=== PATIENT | female | born 1960 | race Caucasian/White ===

== ENCOUNTER 2024-12-03 14:53 | Emergency (ER) | payer MEDICARE, OTHER ==
[~2024-12-03] VITALS: Ht 152.4 cm; Wt 72.6 kg
[2024-12-03] MEDS ORDERED: Lidocaine 4% 1 Patch TOP ONE ×2 (17:00)
[2024-12-03] MEDS ORDERED: Ketorolac Tromethamine 15mg Vial IM ONE (17:00)
== END 2024-12-03 17:33 | disposition home or self-care (01) ==
LOC: ER 14:53
DX: M54.2 Cervicalgia (principal)
CPT/HCPCS: 72070; 72125; 96372; 99284-25; A9270; J1885

== ENCOUNTER 2024-12-05 15:50 | Inpatient (IN) | payer MEDICARE, MEDICAID ==
[~2024-12-05] VITALS: Ht 152.4 cm; Wt 78.7 kg
[2024-12-05 16:22] LABS: BASOPHILS ABSOLUTE AUTO 0.05 K/mm3 (0.00-0.23); BASOPHILS PERCENT AUTO 1 % (0-2); EOSINOPHILS ABSOLUTE AUTO 0.45 K/mm3 (0.00-0.68); EOSINOPHILS PERCENT AUTO 7 % (0-6); Hematocrit 35.2 % (33.0-51.0); IMMATURE GRAN ABSOLUTE AUTO 0.01 K/mm3 (0.00-0.10); IMMATURE GRAN PERCENT AUTO 0 % (0-1); LYMPHOCYTES ABSOLUTE AUTO 1.07 K/mm3 (0.84-5.20); LYMPHOCYTES PERCENT AUTO 16 % (21-46); MONOCYTES ABSOLUTE AUTO 0.76 K/mm3 (0.16-1.47); MONOCYTES PERCENT AUTO 11 % (4-13); Mean Corpuscular HGB 27.9 pg (26.0-34.0); Mean Corpuscular HGB Conc 31.3 g/dL (31.5-36.5); Mean Corpuscular Volume 89 fL (80-100); Mean Platelet Volume 9.6 fL (9.1-12.4); NEUTROPHILS ABSOLUTE AUTO 4.54 K/mm3 (1.96-9.15); NEUTROPHILS PERCENT AUTO 66 % (41-73); Platelet Count 308 K/mm3 (150-400); RDW Coefficient Variation 16.9 % (11.7-14.2); RDW Standard Deviation 55.2 fL (35.1-46.3); Red Blood Cell Count 3.94 M/mm3 (3.80-5.20); White Blood Cell Count 6.88 K/mm3 (4.00-11.30)
[2024-12-05 16:34] LABS: Albumin, Blood 3.1 g/dL (3.4-5.0); Albumin/Globulin Ratio 0.7 (0.8-1.8); Bilirubin, Total 0.9 mg/dL (0.1-1.0); Bun/Creatinine Ratio 19.3 (12.0-20.0); Calcium, Blood 8.8 mg/dL (8.5-10.1); Creatinine, Blood 0.62 mg/dL (0.40-1.00); Globulin, Blood 4.4 g/dL (2.2-4.0); Total Protein, Blood 7.5 g/dL (6.4-8.2)
[2024-12-05] MEDS ORDERED: Morphine Sulfate 4 MG/1 ML Injection IV ONE (18:40)
[2024-12-05] MEDS ORDERED: Ondansetron HCl 2 MG / ML 2ML Vial IV ONE (18:40)
[2024-12-05 19:03] LABS: International Normalized Ratio 1.13
[2024-12-05] MEDS ORDERED: Nitroglycerin 0.4 MG SUBL SL PRN (20:20)
[2024-12-05] MEDS ORDERED: Ondansetron HCl 2 MG / ML 2ML Vial IV PRN (20:50)
[2024-12-05] MEDS ORDERED: FLU VACC TS2024-25(6MOS UP)/PF 45 MCG/0.5 ML SYRINGE IM ONE (20:50)
[2024-12-05] MEDS ORDERED: Morphine Sulfate 4 MG/1 ML Injection IV PRN (20:50)
[2024-12-05] MEDS ORDERED: Ondansetron HCl 2 MG / ML 2ML Vial ONE (20:58)
[2024-12-05] MEDS ORDERED: Morphine Sulfate 4 MG/1 ML Injection ONE (20:58)
[2024-12-05] MEDS ORDERED: Dose Adjust by Pharmacy XX STA (21:40)
[2024-12-05] MEDS ORDERED: Heparin Sodium 5000 Units/ML 1ML MDV IV ONE (21:40)
[2024-12-05] MEDS ORDERED: Heparin Sodium,Porcine/0.5 NS 500 ML IV SCH (21:40)
[2024-12-06] MEDS ORDERED: Insulin Human Lispro 100 Units/ML 3ML Syringe SC SCH
[2024-12-06 04:31] LABS: Hematocrit 31.5 % (33.0-51.0); Hemoglobin 9.8 g/dL (11.5-16.0); Mean Corpuscular HGB Conc 31.1 g/dL (31.5-36.5); Mean Corpuscular Volume 90 fL (80-100); Mean Platelet Volume 10.1 fL (9.1-12.4); Platelet Count 324 K/mm3 (150-400); RDW Coefficient Variation 17.1 % (11.7-14.2); RDW Standard Deviation 55.8 fL (35.1-46.3); White Blood Cell Count 6.98 K/mm3 (4.00-11.30)
[2024-12-06 04:45] LABS: Anti-Xa UFH, PHA Monitoring 0.22 IU/mL; International Normalized Ratio 1.19; Prothrombin Time Results 12.6 Sec (9.7-11.5)
[2024-12-06 04:52] LABS: Albumin, Blood 3.1 g/dL (3.4-5.0); Albumin/Globulin Ratio 0.8 (0.8-1.8); Bilirubin, Total 1.1 mg/dL (0.1-1.0); Bun/Creatinine Ratio 17.1 (12.0-20.0); Calcium, Blood 8.7 mg/dL (8.5-10.1); Creatinine, Blood 0.7 mg/dL (0.40-1.00); Globulin, Blood 3.9 g/dL (2.2-4.0); Magnesium, Blood 1.8 mg/dL (1.6-2.4); Potassium, Blood 3.8 mmol/L (3.5-5.5)
[2024-12-06] MEDS ORDERED: Dose Adjust by Pharmacy XX STA ×3 (05:39→20:46)
[2024-12-06] MEDS ORDERED: Heparin Sodium 5000 Units/ML 1ML MDV IV ONE ×3 (05:40→20:50)
[2024-12-06] MEDS ORDERED: Aspirin 81 MG Chew PO SCH (09:00)
[2024-12-06] MEDS ORDERED: Metoprolol Succinate 25 MG TABCR PO SCH (09:00)
[2024-12-06] MEDS ORDERED: Atorvastatin 40 MG Tab PO SCH (09:00)
[2024-12-06] MEDS ORDERED: Lisinopril 5 MG Tab PO SCH (09:00)
[2024-12-06] MEDS ORDERED: HYDROcodone 5-APAP 325 TAB PO PRN (09:45)
[2024-12-06] MEDS ORDERED: ASPI81CH PO (12:38)
[2024-12-06] MEDS ORDERED: ATOR40TA PO (12:38)
[2024-12-06] MEDS ORDERED: METO25 PO (12:38)
[2024-12-06] MEDS ORDERED: FURO40 PO (12:39)
[2024-12-06] MEDS ORDERED: METF500 PO (12:39)
[2024-12-06] MEDS ORDERED: K-TAB ER20 ME1 PO (12:39)
[2024-12-06] MEDS ORDERED: WARF2.5 PO (12:40)
[2024-12-06] MEDS ORDERED: SERT50 PO (12:40)
[2024-12-06] MEDS ORDERED: LISI20 PO (12:41)
[2024-12-06] MEDS ORDERED: HYDROCODONE-AC1 EA19 PO (12:43)
[2024-12-06 12:44] VITALS: BP 107/66
--- NOTE | 2024-12-06 13:28 | NUR ---
ADMISSION: PT ARRIVED TO PCU VIA GURNEY AT APPROX 1230. PT ABLE TO TRANSFER WITH ONE PERSON ASSIST. ALERT AND ORIENTED X4, ABLE TO FOLLOW COMMANDS AND MAKE NEEDS KNOWN. STRENGTH EQUAL BILATERALLY. PEERLA. BP STABLE. HR PACED 60'S. AFEBRILE. SPO2 >98% ON 2L NC. ABD DISTENDED, BOWEL SOUNDS +. NON TENDER. PLAN FOR PARACENTESIS 12/07/24. PULSES STRONG AND EQUAL THROUGHOUT. PT WITH 8/10 CHEST PAIN, MEDICATED PER EMAR. PT ORIENTED TO ROOM AND CALL LIGHT SYSTEM.
--- NOTE | 2024-12-06 17:00 | NUR ---
SHIFT SUMMARY: PT WITH NO ACUTE CHANGES SINCE ADMISSION. MEDICATED X1 FOR PAIN. VSS. PLAN FOR PARACENTESIS AT 0900 12/07/24. HEPARIN TO BE TURNED OFF AT 0600- SEE NURSE NOTIFY. BED IN LOW, CALL LIGHT IN REACH, WILL REPORT TO ONCOMING RN.
[2024-12-06 17:08] VITALS: BP 103/59
[2024-12-06 19:50] VITALS: BP 111/66
[2024-12-06 23:31] VITALS: BP 116/74
[2024-12-07 03:25] LABS: Hematocrit 30.1 % (33.0-51.0); Hemoglobin 9.3 g/dL (11.5-16.0)
[2024-12-07 03:42] LABS: Bun/Creatinine Ratio 26.2 (12.0-20.0); Calcium, Blood 8.6 mg/dL (8.5-10.1); Creatinine, Blood 0.69 mg/dL (0.40-1.00); Magnesium, Blood 1.6 mg/dL (1.6-2.4); Potassium, Blood 4.4 mmol/L (3.5-5.5)
[2024-12-07 04:00] VITALS: BP 107/64
[2024-12-07] MEDS ORDERED: Clarify Drug Order XX ONE (04:20)
--- NOTE | 2024-12-07 05:52 | NUR ---
SHIFT SUMMARY ASSUMED CARE OF PT AT 1900. PT A&O4, COOPERATIVE IN CARE AND ABLE TO EXPRESS NEEDS. HEP GTTS CURRENTLY ON STANDBY D/T A PARACENTESIS LATER THIS AM; AT THERAPEUTIC RANGE HEP GTT WAS RUNNING AT 21U/KG/HR OR 25.2mL/HR. PT REFUSED CPAP OVERNIGHT. VSS AND REMAINED ON 1L NC. PT C/O ABDOMEN PAIN OVERNIGHT BUT DENIED CP/PRESSURE AND SOB, EVEN WHILE UP TO RR. BED IN LOWEST POSITION AND CALL LIGHT WITHIN REACH.
[2024-12-07] MEDS ORDERED: Omeprazole 20 MG CapCR PO SCH (06:00)
[2024-12-07 07:35] VITALS: BP 109/71
[2024-12-07] MEDS ORDERED: Spironolactone 25 MG Tab PO SCH ×2 (09:00)
[2024-12-07] MEDS ORDERED: Spironolactone 50 MG Tab PO SCH (09:00)
[2024-12-07] MEDS ORDERED: Torsemide 20 MG TAB PO SCH (09:00)
[2024-12-07 10:21] LABS: Automated BF RBC Count 0.003 M/mm3 (0-0); Automated BF WBC Count 0.366 K/mm3 (0-999)
[2024-12-07 10:26] VITALS: BP 97/85
[2024-12-07 10:32] LABS: Body Fluid WBC Count 366 /mm3 (0-999); RBC Count, Body Fluid 3000 /mm3 (0-0)
--- NOTE | 2024-12-07 10:33 | NUR ---
MORNING NOTE THIS RN ASSUMED CARE AT APPROX 0715. PATIENT ALERT AND ORIENTED X4. BEDBATH COMPLETED THIS MORNING. VSS. TELEMETRY SHOWING V PACED 60. SBP 90s-100s. MAP >65. DENIES CHEST PAIN, PRESSURE. ON 1L VIA NC, SATs >90%. RR EVEN, UNLABORED AT REST. ABD FIRM, DISTENDED, BOWEL TONES HYPOACTIVE - PARACENTESIS COMPLETED THIS MORNING. BANDAID TO RLQ - C/D/I. 5L OFF. MANAGING ABD PAIN PER EMAR. HEPARIN GTT RESTARTED PER RADIOLOGY AT ORDERED RATE - PHARMACY AWARE. SBA WITH MOBILITY. CALL LIGHT IN REACH.
[2024-12-07 10:57] LABS: Albumin, Body Fluid 1.8 g/dL; Glucose, Body Fluid 170 mg/dL
--- NOTE | 2024-12-07 10:57 | NUR ---
MD KAPOOR CONTACTED WITH UPDATE POST PARACENTESIS. [facility] [employer] [place] SPOKE WITH MD BACH - PATIENT TO TRANSFER TO COUMADIN THERAPY. MD KAPOOR TO PLACE ORDERS FOR COUMADIN. RECEIVED ORDER FOR ACHS CBG CHECKS WITH LOW SLIDING SCALE AND FOR STATUS CHANGE TO MEDICAL WITH TELEMETRY - THOSE ORDERS IN PLACE.
[2024-12-07 10:58] LABS: Lactate Dehydrogenase, Body Fl 109 U/L; Protein, Body Fluid 3.9 g/dL
[2024-12-07] MEDS ORDERED: Albumin (Human) 25gm/100ml 100 ML IV ONE (11:05)
[2024-12-07 11:10] VITALS: BP 109/61
[2024-12-07 11:22] LABS: Appearance, Body Fluid Hazy (Clear); Color, Body Fluid Yellow (None-Yellow); Total Cell Count, Body Fluid 100
[2024-12-07] MEDS ORDERED: Insulin Human Lispro 100 Units/ML 3ML Syringe SC SCH (11:30)
[2024-12-07] MEDS ORDERED: Albumin Human 50 ML IV ONE (12:30)
[2024-12-07 15:07] VITALS: BP 115/76
--- NOTE | 2024-12-07 17:40 | NUR ---
SHIFT SUMMARY NO ACUTE CHANGES SINCE MORNING NOTE. VSS. TELEMETRY SHOWING V PACED 60s-80s. SBP 90s-110s. MAP >65. DENIES CHEST PAIN, PRESSURE. HEPARIN GTT INFUSING PER EMAR. PO WARFARIN ADMINISTERED THIS EVENING TO BEGIN BRIDGING PROCESS. REMAINS ON 1-2L VIA NC, SATs >90%. RR EVEN, UNLABORED AT REST. PARACENTESIS SITE C/D/I. MANAGING ABD PAIN PER EMAR. TOLERATING PO INTAKE. UP TO RESTROOM WITH SBA. VOIDING. CALL LIGHT IN REACH. WILL CONTINUE TO MONITOR AND REPORT TO ONCOMING RN.
[2024-12-07] MEDS ORDERED: Warfarin Sodium 5 MG Tab PO SCH (18:00)
[2024-12-07] MEDS ORDERED: Heparin Sodium 5000 Units/ML 1ML MDV IV ONE (18:00)
[2024-12-07 20:20] VITALS: BP 108/87
[2024-12-08] MEDS ORDERED: Clarify Drug Order XX ONE ×2 (01:05→06:15)
[2024-12-08 03:57] VITALS: BP 96/61
[2024-12-08 05:58] LABS: BASOPHILS ABSOLUTE AUTO 0.04 K/mm3 (0.00-0.23); BASOPHILS PERCENT AUTO 1 % (0-2); EOSINOPHILS ABSOLUTE AUTO 0.38 K/mm3 (0.00-0.68); EOSINOPHILS PERCENT AUTO 6 % (0-6); Hematocrit 31.7 % (33.0-51.0); Hemoglobin 9.8 g/dL (11.5-16.0); IMMATURE GRAN ABSOLUTE AUTO 0.02 K/mm3 (0.00-0.10); IMMATURE GRAN PERCENT AUTO 0 % (0-1); LYMPHOCYTES ABSOLUTE AUTO 1.22 K/mm3 (0.84-5.20); LYMPHOCYTES PERCENT AUTO 20 % (21-46); MONOCYTES ABSOLUTE AUTO 0.83 K/mm3 (0.16-1.47); MONOCYTES PERCENT AUTO 13 % (4-13); Mean Corpuscular HGB 28.1 pg (26.0-34.0); Mean Corpuscular HGB Conc 30.9 g/dL (31.5-36.5); Mean Corpuscular Volume 91 fL (80-100); Mean Platelet Volume 9.4 fL (9.1-12.4); NEUTROPHILS ABSOLUTE AUTO 3.75 K/mm3 (1.96-9.15); NEUTROPHILS PERCENT AUTO 60 % (41-73); Platelet Count 288 K/mm3 (150-400); RDW Coefficient Variation 16.6 % (11.7-14.2); RDW Standard Deviation 55.2 fL (35.1-46.3); Red Blood Cell Count 3.49 M/mm3 (3.80-5.20); White Blood Cell Count 6.24 K/mm3 (4.00-11.30)
[2024-12-08 06:06] LABS: International Normalized Ratio 1.18; Prothrombin Time Results 12.5 Sec (9.7-11.5)
[2024-12-08 06:13] LABS: Bun/Creatinine Ratio 22.4 (12.0-20.0); Calcium, Blood 8.6 mg/dL (8.5-10.1); Creatinine, Blood 0.67 mg/dL (0.40-1.00); Magnesium, Blood 1.9 mg/dL (1.6-2.4); Phosphorus, Blood 3.1 mg/dL (2.5-4.9); Potassium, Blood 4.5 mmol/L (3.5-5.5)
--- NOTE | 2024-12-08 06:16 | NUR ---
SHIFT SUMMARY ASSUMED CARE OF PT AT APPROX 1900. PT A&O4, COOPERATIVE IN CARE AND ABLE TO EXPRESS NEEDS. PT DENIES SOB AND CP/PRESSURE. ONLY COMPLAINTS PT HAD WHERE OF THE ABDOMEN. PARACENTESIS SITE C/D/I. VSS AND PT REMAINED ON 2LNC. PT REMANINED ON HEPARIN GTTS AT 23U/KG/HR OR 27.6ML/HR. LABS HAVE BEEN THERAPUTIC PER RX. BED IN LOWEST POSITION AND CALL LIGHT IS IN REACH.
[2024-12-08 08:15] VITALS: BP 115/68
[2024-12-08] MEDS ORDERED: Torsemide 20 MG TAB PO SCH ×2 (09:00)
[2024-12-08 11:25] VITALS: BP 101/64
[2024-12-08] MEDS ORDERED: Lidocaine 4% 1 Patch TOP SCH (11:50)
[2024-12-08 16:16] VITALS: BP 96/62
--- NOTE | 2024-12-08 17:08 | NUR ---
Patient is lying in her bed and alert. Chaplain Lora and I visit her. She tells us about a traumatic event and the issues that led to her admission to the hospital. She tells us about her fears which are mostly centered around housing insecurity and people that she can trust. She is tearful when we arrive but seems to perk up quite a bit as we talk. She shares about her belief in God but not a connection to any particular organized anabaptist. We explore her hopes and some of the concerns she has for feeling safe. We provided therapeutic listening, reinforce helpful attitudes, normalize her responses and provided prayer. She voices that it was meaningful and invites us to return when possible.
--- NOTE | 2024-12-08 17:12 | NUR ---
SHIFT SUMMARY PT A&Oc4, CALLS AND COMMUNICATES NEEDS APPROPRIATELY. BP STABLE, PACED 60'S, DENIES CP/PRESSURE. SpO2> 92% RA-2L VIA NC, DENIES SOB. IND IN ROOM. REPORTS PAIN SECONDARY TO PARA, MANAGED PER EMAR. HEPARIN gtt INFUSING PER EMAR MANAGED BY PHARMACY. NO OTHER EVENTS, WILL REPORT TO ONCOMING RN.
[2024-12-08] MEDS ORDERED: Warfarin Sodium 5 MG Tab PO SCH (18:00)
[2024-12-08 20:34] VITALS: BP 114/64
[2024-12-09 03:26] VITALS: BP 118/56
[2024-12-09 03:38] LABS: BASOPHILS ABSOLUTE AUTO 0.04 K/mm3 (0.00-0.23); BASOPHILS PERCENT AUTO 1 % (0-2); EOSINOPHILS ABSOLUTE AUTO 0.34 K/mm3 (0.00-0.68); EOSINOPHILS PERCENT AUTO 6 % (0-6); Hematocrit 32.2 % (33.0-51.0); IMMATURE GRAN ABSOLUTE AUTO 0.02 K/mm3 (0.00-0.10); IMMATURE GRAN PERCENT AUTO 0 % (0-1); LYMPHOCYTES ABSOLUTE AUTO 1.17 K/mm3 (0.84-5.20); LYMPHOCYTES PERCENT AUTO 21 % (21-46); MONOCYTES ABSOLUTE AUTO 0.71 K/mm3 (0.16-1.47); MONOCYTES PERCENT AUTO 13 % (4-13); Mean Corpuscular HGB 27.9 pg (26.0-34.0); Mean Corpuscular HGB Conc 31.1 g/dL (31.5-36.5); Mean Corpuscular Volume 90 fL (80-100); Mean Platelet Volume 9.4 fL (9.1-12.4); NEUTROPHILS ABSOLUTE AUTO 3.35 K/mm3 (1.96-9.15); NEUTROPHILS PERCENT AUTO 60 % (41-73); Platelet Count 293 K/mm3 (150-400); RDW Coefficient Variation 16.7 % (11.7-14.2); RDW Standard Deviation 55.1 fL (35.1-46.3); Red Blood Cell Count 3.59 M/mm3 (3.80-5.20); White Blood Cell Count 5.63 K/mm3 (4.00-11.30)
[2024-12-09 03:56] LABS: Bun/Creatinine Ratio 26.3 (12.0-20.0); Calcium, Blood 8.6 mg/dL (8.5-10.1); Creatinine, Blood 0.84 mg/dL (0.40-1.00); Potassium, Blood 4.3 mmol/L (3.5-5.5)
[2024-12-09 04:01] LABS: Anti-Xa UFH, PHA Monitoring 0.33 IU/mL; International Normalized Ratio 1.21; Prothrombin Time Results 12.8 Sec (9.7-11.5)
--- NOTE | 2024-12-09 04:58 | NUR ---
shift summary. shift has been unremarkable. pt aox4, pleasant, cooperative with care, able to make needs known. pt has been able to rest comfortably throughout most of shift. pain has been adequately managed via emar. vitals have remained stable. has maintained adequate saturation on RA-2 l o2 throughout shift. running paced on tele. independent transfer, calls appropriately for assistance. heparin infusing throughout shift. bed locked in lowest position. call light left within reach. continuing to monitor.
[2024-12-09] MEDS ORDERED: Clarify Drug Order XX ONE (05:25)
[2024-12-09 08:36] VITALS: BP 106/57
[2024-12-09] MEDS ORDERED: OxyCODONE HCL 5 MG TAB PO PRN (10:05)
[2024-12-09] MEDS ORDERED: ALPRAZolam 0.25 MG Tab PO ONE (11:00)
[2024-12-09] MEDS ORDERED: ALPRAZolam 0.25 MG Tab PO PRN (16:00)
[2024-12-09 16:37] VITALS: BP 117/61
[2024-12-09] MEDS ORDERED: Warfarin Sodium 5 MG Tab PO SCH (18:00)
--- NOTE | 2024-12-09 18:10 | NUR ---
SHIFT SUMMARY PT ALERT AND ORIENTED X4, CALM, COOPERATIVE TO CARE. HR IN THE 60'S, PACED RHYTHM, SHE DENIES ANY CHEST PAIN AT THIS TIME, DENIES NUMB/TINGLING, SBP STABLE. O2 >92% ON 2L VIA NC, 2L AT BASELINE. PT AMBULATORY TO BATHROOM. PT WITH 8/10 PAIN OF THE NECK AND TUMMY, MEDICATING PER EMAR. PT ON HEP GTT PER ORDER. TRANSITIONING TO ORAL ANTICOAGULATION. PT DENIES ANY QUESTIONS OR CONCERNS AT THIS TIME. WILL MONITOR AND REPOT TO HOT PLATE [place] PRESS OFFBEARER RN.
[2024-12-09 20:54] VITALS: BP 114/68
[2024-12-10 04:20] LABS: BASOPHILS ABSOLUTE AUTO 0.05 K/mm3 (0.00-0.23); BASOPHILS PERCENT AUTO 1 % (0-2); EOSINOPHILS ABSOLUTE AUTO 0.35 K/mm3 (0.00-0.68); EOSINOPHILS PERCENT AUTO 6 % (0-6); Hematocrit 30.6 % (33.0-51.0); Hemoglobin 9.7 g/dL (11.5-16.0); IMMATURE GRAN ABSOLUTE AUTO 0.02 K/mm3 (0.00-0.10); IMMATURE GRAN PERCENT AUTO 0 % (0-1); LYMPHOCYTES ABSOLUTE AUTO 1.19 K/mm3 (0.84-5.20); LYMPHOCYTES PERCENT AUTO 21 % (21-46); MONOCYTES ABSOLUTE AUTO 0.88 K/mm3 (0.16-1.47); MONOCYTES PERCENT AUTO 15 % (4-13); Mean Corpuscular HGB 28.1 pg (26.0-34.0); Mean Corpuscular HGB Conc 31.7 g/dL (31.5-36.5); Mean Corpuscular Volume 89 fL (80-100); Mean Platelet Volume 10.2 fL (9.1-12.4); NEUTROPHILS ABSOLUTE AUTO 3.32 K/mm3 (1.96-9.15); NEUTROPHILS PERCENT AUTO 57 % (41-73); Platelet Count 299 K/mm3 (150-400); RDW Coefficient Variation 16.7 % (11.7-14.2); Red Blood Cell Count 3.45 M/mm3 (3.80-5.20); White Blood Cell Count 5.81 K/mm3 (4.00-11.30)
[2024-12-10 04:35] LABS: Anti-Xa UFH, PHA Monitoring 0.29 IU/mL; International Normalized Ratio 1.31; Prothrombin Time Results 13.7 Sec (9.7-11.5)
[2024-12-10 04:44] VITALS: BP 114/67
[2024-12-10 04:48] LABS: Albumin, Blood 2.8 g/dL (3.4-5.0); Albumin/Globulin Ratio 0.7 (0.8-1.8); Bilirubin, Total 0.6 mg/dL (0.1-1.0); Bun/Creatinine Ratio 26.8 (12.0-20.0); Calcium, Blood 8.6 mg/dL (8.5-10.1); Creatinine, Blood 0.67 mg/dL (0.40-1.00); Globulin, Blood 3.9 g/dL (2.2-4.0); Potassium, Blood 4.3 mmol/L (3.5-5.5); Total Protein, Blood 6.7 g/dL (6.4-8.2)
--- NOTE | 2024-12-10 05:12 | NUR ---
SHIFT SUMMARY. SHIFT HAS BEEN UNREMARKABLE. PT AOX4, PLEASANT, COOPERATIVE WITH CARE, ABLE TO MAKE NEEDS KNOWN. PAIN HAS BEEN ADEQUATELY MANAGED. VITALS HAVE BEEN STABLE. CONTINUES TO RUN PACED ON TELE. INDEPENDENT TRANSFER WITHIN ROOM, CALLS APPROPRIATELY FOR ASSISTANCE. HEPARIN DRIP RUNNING THROUGHOUT SHIFT. BED LOCKED IN LOWEST POSITION. CALL LIGHT LEFT WITHIN REACH. CONTINUING TO MONITOR.
[2024-12-10] MEDS ORDERED: Dose Adjust by Pharmacy XX STA ×2 (05:56→12:38)
[2024-12-10] MEDS ORDERED: Heparin Sodium 5000 Units/ML 1ML MDV IV ONE (06:00)
[2024-12-10 07:41] VITALS: BP 119/71
[2024-12-10 11:33] VITALS: BP 123/95
--- NOTE | 2024-12-10 15:00 | NUR ---
Transfer to Medical Floor Pt medical w/ telemetry status. Pt A&O x4. VSS. Monitor showing paced rhythm, HR 60s. Spo2 > 92% on RA. Pt reports wearing 2L NC while sleeping & PRN during day. Pt reports "tummy" pain. Pt states abd "better" today, but states "it'll probably be a few weeks & I'll need drained again. Pt home coumadin dose clarified w/ pt. Pt reports taking 5mg Mon,Wed,Fri & 2.5mg on Sat,Tue,Harmony,Sat. Pt continues to have heparin gtt infusing per orders while bridging coumadin. Report given to accepting medical floor RN assuming care of pt. Pt taken to rm 360 by wheelchair w/ belongings @ approx 1500.
[2024-12-10 15:38] VITALS: BP 92/53
[2024-12-10] MEDS ORDERED: Warfarin Sodium 5 MG Tab PO ONE (18:00)
[2024-12-10] MEDS ORDERED: Warfarin Sodium 7.5 MG Tab PO ONE (18:00)
[2024-12-10] MEDS ORDERED: Clarify Drug Order XX ONE (19:00)
--- NOTE | 2024-12-10 19:00 | NUR ---
PT WAS TRANSFER FROM PCU. NO CHANGES IN PT STATUS SINCE TRANSFER WITH C/O PAIN SEE EMAR FOR DETAILS. PT HAS NO QUESTIONS OR COCNERNS AT THIS TIME
[2024-12-10 20:24] VITALS: BP 100/63
[2024-12-11 05:48] VITALS: BP 115/61
[2024-12-11 06:33] LABS: Anti-Xa UFH, PHA Monitoring 0.44 IU/mL; International Normalized Ratio 1.59; Prothrombin Time Results 16.4 Sec (9.7-11.5)
[2024-12-11 06:56] LABS: Hematocrit 31.1 % (33.0-51.0); Mean Platelet Volume 10.4 fL (9.1-12.4); Platelet Count 304 K/mm3 (150-400)
[2024-12-11 07:54] VITALS: BP 112/61
[2024-12-11 16:34] VITALS: BP 104/59
--- NOTE | 2024-12-11 17:15 | NUR ---
NO CHANGES IN PT STATUS. PT HAD SOME C/O PAIN THROUGH THE SHIFT. SEE EMAR FOR DETAILS. PT HAS NO QUESTIONS OR CONCERNS AT THIS TIME.
[2024-12-11] MEDS ORDERED: Warfarin Sodium 5 MG Tab PO ONE (18:00)
[2024-12-11 19:54] VITALS: BP 100/51
[2024-12-12 03:31] VITALS: BP 123/71
[2024-12-12 03:49] LABS: Anti-Xa UFH, PHA Monitoring 0.49 IU/mL; International Normalized Ratio 2.33; Prothrombin Time Results 23.4 Sec (9.7-11.5)
[2024-12-12 07:14] VITALS: BP 120/74
[2024-12-12] MEDS ORDERED: METO25ER PO (12:02)
[2024-12-12] MEDS ORDERED: OXYC5 PO (12:03)
[2024-12-12] MEDS ORDERED: SPIR25 PO (12:04)
--- NOTE | 2024-12-12 14:53 | NUR ---
PT DISCHARGED AOX4 AND COOPERATIVE OF CARE. PT INDEPENDENT IN ROOM. START TO THE MORINGING PT REPORTED HIP AND DR SANTIAGO WAS NOTIFIED NO NEW ORDERS. PAPERWORK WAS REVIEWED AND EDUCATIONAL MATERIAL SENT WITH PT. PT HAS BEEN PROVIDED WITH PRIMARY CARE DOCTORS LIST TO SET UP CARE WITH A PCP. NO DISTRESS NOTED AND PT TOOK PERSONAL BELONGINGS WITH HER. PT ESCORTED OUT TO N ENTRANCE VIA WHEELCHAIR. PT WAS TO DRIVE HERSELF HOME.
== END 2024-12-12 13:22 | disposition home or self-care (01) | DRG 433 ==
LOC: ER 15:50 → ERHOLD 15:51 → PCU 15:51 → MEDS 12-06 16:57 → PCU 12-06 16:57 → MEDS 12-10 15:17
PROVIDERS: Emergency Medicine; Hospitalist; Internal Medicine; Nurse Practitioner Acute Care; Student in an Organized Health Care Education/Training Program; ADMIT Internal Medicine
PROC: 0W9G3ZZ Drainage of Peritoneal Cavity, Percutaneous Approach (ICD-10-PCS; principal; 2024-12-07)
DX: K74.60 Unspecified cirrhosis of liver (principal); I48.19 Other persistent atrial fibrillation; R18.8 Other ascites; I50.32 Chronic diastolic (congestive) heart failure; E11.9 Type 2 diabetes mellitus without complications; F32.A Depression, unspecified; I11.0 Hypertensive heart disease with heart failure; Z95.2 Presence of prosthetic heart valve; E78.5 Hyperlipidemia, unspecified; Z95.0 Presence of cardiac pacemaker; Z88.0 Allergy status to penicillin; Z88.1 Allergy status to other antibiotic agents; Z79.82 Long term (current) use of aspirin; Z79.899 Other long term (current) drug therapy; Z79.4 Long term (current) use of insulin; I25.2 Old myocardial infarction
CPT/HCPCS: 36415; 49083; 70450; 71046; 71275; 74175; 80048; 80053; 82042; 82945; 82947; 83615; 83735; 83880; 84100; 84157; 84484; 85014; 85018; 85025; 85027; 85049; 85520; 85610; 85730; 89051; 93005; 93010; 93306; 94762; 96365-59; 96366; 96366-59; 96375-59; 96376; 96376-59; 99285-25; A9270; G0378; J1644; J2270; J2405; P9047; Q9967

== ENCOUNTER 2025-11-24 13:37 | Emergency (ER) | payer MEDICARE, OTHER ==
[~2025-11-24] VITALS: Ht 152.4 cm; Wt 78.9 kg
[~2025-11-24 13:37] MED LIST: ASPI81CH PO; ATOR40TA PO; FURO40 PO; HYDROCODONE-AC1 EA19 PO; K-TAB ER20 ME1 PO; LISI20 PO; METF500 PO; METO25 PO; METO25ER PO; OXYC5 PO; SERT50 PO; SPIR25 PO; WARF2.5 PO
[2025-11-24 14:41] LABS: BASOPHILS ABSOLUTE AUTO 0.04 K/mm3 (0.00-0.23); BASOPHILS PERCENT AUTO 0 % (0-2); EOSINOPHILS ABSOLUTE AUTO 0.14 K/mm3 (0.00-0.68); EOSINOPHILS PERCENT AUTO 1 % (0-6); Hematocrit 34.6 % (33.0-51.0); Hemoglobin 10.7 g/dL (11.5-16.0); IMMATURE GRAN ABSOLUTE AUTO 0.05 K/mm3 (0.00-0.10); IMMATURE GRAN PERCENT AUTO 0 % (0-1); LYMPHOCYTES ABSOLUTE AUTO 1.08 K/mm3 (0.84-5.20); LYMPHOCYTES PERCENT AUTO 9 % (21-46); MONOCYTES ABSOLUTE AUTO 1.13 K/mm3 (0.16-1.47); MONOCYTES PERCENT AUTO 10 % (4-13); Mean Corpuscular HGB Conc 30.9 g/dL (31.5-36.5); Mean Corpuscular Volume 93 fL (80-100); NEUTROPHILS ABSOLUTE AUTO 9.22 K/mm3 (1.96-9.15); NEUTROPHILS PERCENT AUTO 79 % (41-73); NRBC ABSOLUTE 0.00 K/mm3 (0.00-0.02); NRBC Auto 0.0 /100 WBC (0.0-0.2); Platelet Count 330 K/mm3 (150-400); RDW Coefficient Variation 15.6 % (11.7-14.2); RDW Standard Deviation 52.7 fL (35.1-46.3)
[2025-11-24 15:00] LABS: Alanine Aminotransfer (ALT/SGP 14.0 U/L (12-78); Albumin, Blood 2.8 g/dL (3.4-5.0); Albumin/Globulin Ratio 0.8 (0.8-1.8); Anion Gap 7.0 mmol/L (3-11); Aspartate Aminotrans (AST/SGOT 18.0 U/L (12-37); Bilirubin, Total 0.5 mg/dL (0.1-1.0); Blood Urea Nitrogen 27.0 mg/dL (8-24); CO2, Blood 29.0 mmol/L (21-32); Calcium, Blood 8.3 mg/dL (8.5-10.1); Chloride, Blood 104.0 mmol/L (98-108); Creatinine, Blood 0.8 mg/dL (0.40-1.00); Globulin, Blood 3.4 g/dL (2.2-4.0); Glucose, Blood 151.0 mg/dL (70-99); Potassium, Blood 4.5 mmol/L (3.5-5.5); Sodium, Blood 135.0 mmol/L (136-145); Total Protein, Blood 6.2 g/dL (6.4-8.2)
[2025-11-24] MEDS ORDERED: Ondansetron HCl 2 MG / ML 2ML Vial IV ONE (16:25)
[2025-11-24] MEDS ORDERED: Albuterol 2.5 MG/3 ML VIAL INH SCH ×2 (16:45→19:05)
[2025-11-24] MEDS ORDERED: Morphine Sulfate 4 MG/1 ML Injection IV ONE (18:05)
[2025-11-24] MEDS ORDERED: ALBU2.5V5 INH (20:27)
== END 2025-11-24 20:40 | disposition home or self-care (01) ==
LOC: ER 13:37
PROVIDERS: Student in an Organized Health Care Education/Training Program
DX: R06.02 Shortness of breath (principal); R07.9 Chest pain, unspecified; W19.XXXA Unspecified fall, initial encounter; Z79.82 Long term (current) use of aspirin; Z79.01 Long term (current) use of anticoagulants; Z88.0 Allergy status to penicillin
CPT/HCPCS: 71046; 71275; 80053; 83690; 84484; 85025; 93005; 93010; 96374; 96375; 99285-25; A9270; J2270; J2405; Q9967